=== PATIENT | female | born 1980 | race Hispanic/Latino ===

== ENCOUNTER 2020-04-28 16:23 | Emergency (ER) | payer SELFPAY ==
--- NOTE | 2020-04-28 17:10 | XRay Report ---
CHEST 2 VIEWS INDICATION / CLINICAL INFORMATION: coughing. COMPARISON: None available. FINDINGS: SUPPORT DEVICES: None. HEART / MEDIASTINUM: No significant abnormality. LUNGS / PLEURA: No significant pulmonary or pleural abnormality. No pneumothorax. ADDITIONAL FINDINGS: No significant additional findings. IMPRESSION: 1. No acute findings. Signer Name: Marcial Bourgeois MD Signed: 04/28/2020 5:05 PM Workstation Name: [id number]
[2020-04-28] MEDS ORDERED: IPRATROPIUM/ALBUTEROL SULFATE 3 ML AMPUL.NEB IH ONE (20:08)
[2020-04-28] MEDS ORDERED: dexAMETHasone 20 MG/5 ML VIAL IV ONE (20:08)
[2020-04-28] MEDS ORDERED: IBUPROFEN 600 MG TAB PO ONE (20:08)
[2020-04-28] MEDS ORDERED: ONDANSETRON 4 MG ODT TAB PO ONE (20:09)
[2020-04-28] MEDS ORDERED: FAMOTIDINE 20 MG TAB PO ONE (20:09)
[2020-04-28 20:39] LABS: Basophils # (Auto) 0.1 K/mm3 (0.0-0.1); Basophils % (Auto) 0.7 % (0.0-1.8); Eosinophils # (Auto) 0.2 K/mm3 (0.0-0.4); Eosinophils % (Auto) 2.3 % (0.0-4.3); Hematocrit 39.5 % (30.3-42.9); Hemoglobin 14.1 gm/dl (10.1-14.3); Lymphocytes # (Auto) 2.4 K/mm3 (1.2-5.4); Lymphocytes % (Auto) 26.9 % (13.4-35.0); Mean Corpuscular HGB Conc 36 % (30-34); Mean Corpuscular Volume 99 fl (79-97); Monocytes # (Auto) 0.6 K/mm3 (0.0-0.8); Monocytes % (Auto) 6.1 % (0.0-7.3); Platelet Count 264 K/mm3 (140-440); Red Blood Count 4.01 M/mm3 (3.65-5.03); Red Cell Distribution Width 13.4 % (13.2-15.2)
[2020-04-28 20:51] LABS: Alanine Aminotransferase 64 units/L (7-56); BUN/Creatinine Ratio 11; Blood Urea Nitrogen 9 mg/dL (7-17); Calcium 9.2 mg/dL (8.4-10.2); Hemolysis Index 5
--- NOTE | 2020-04-28 23:10 | Emergency Department Report ---
- General Chief Complaint: Upper Respiratory Infection Stated Complaint: COUGH,WEAKNESS,DIZZY,VOMITTING Source: patient Mode of arrival: Ambulatory Limitations: No Limitations - History of Present Illness Initial Comments: Patient is a 40-year-old white female with past medical history of heavy tobacco abuse who presents to the ED with complaint of acute onset persistent nasal and sinus congestion, persistent dry cough with wheezing, shortness of breath, frontal sinus pressure, sore throat, epigastric pain and nausea and vomiting for the last 1 week, worse in the last 2 days. Patient states that she has also felt very weak and fatigued in the last 2 days. Patient denies dizziness, syncope, fever, chills, chest pain, shortness of breath, change in vision, palpitations, dysuria, urinary frequency and urgency, back pain, hemoptysis or diarrhea. MD Complaint: cough, sore throat, rhinorrhea, nasal congestion, sinus pain, other (Nausea and vomiting and epigastric pain) -: Sudden, week(s) (1 week) Severity: moderate Severity scale (0 -10): 5 Quality: sharp, aching Consistency: intermittent Improves With: nothing Worsens With: nothing Associated Symptoms: denies other symptoms, headache, rhinorrhea, nasal congestion, sore throat, cough, shortness of breath, abdominal pain, nausea, vomiting, hoarseness. denies: fever, chills, myalgias, diaphoresis, stiff neck, chest pain, diarrhea, dysuria, rash, right sweats, epistaxis, ear pain Treatments Prior to Arrival: none - Related Data Previous Rx's Medication Instructions Recorded Last Taken Type Azithromycin [Zithromax Z-HEATH] 250 mg PO DAILY #6 tablet 04/28/20 Unknown Rx Benzonatate [Tessalon Perles] 100 mg PO Q8HR #30 capsule 04/28/20 Unknown Rx Cetirizine HCl [Zyrtec 10mg tab] 10 mg PO DAILY #30 tablet 04/28/20 Unknown Rx Famotidine [Pepcid] 20 mg PO BID #60 tablet 04/28/20 Unknown Rx Prednisone [predniSONE 10 mg 10 mg PO .TAPER #21 tab.ds.pk 04/28/20 Unknown Rx (6-Day Pack, 21 Tabs)] Promethazine [Phenergan] 25 mg PO Q6HR PRN #20 tab 04/28/20 Unknown Rx Allergies Allergy/AdvReac Type Severity Reaction Status Date / Time No Known Allergies Allergy Verified 04/28/20 16:42 ED Review of Systems ROS: Stated complaint: COUGH,WEAKNESS,DIZZY,VOMITTING Other details as noted in HPI Constitutional: weakness. denies: chills, fever Eyes: denies: eye pain, eye discharge, vision change ENT: throat pain, congestion, other (Frontal sinus pressure). denies: ear pain Respiratory: cough, shortness of breath, wheezing Cardiovascular: denies: chest pain, palpitations Endocrine: no symptoms reported Gastrointestinal: abdominal pain (Epigastric pain), nausea, vomiting. denies: diarrhea Genitourinary: denies: urgency, dysuria, frequency, hematuria, discharge Musculoskeletal: denies: back pain, joint swelling, arthralgia Skin: denies: rash, lesions Neurological: headache. denies: weakness, paresthesias Psychiatric: denies: anxiety, depression Hematological/Lymphatic: denies: easy bleeding, easy bruising ED Past Medical Hx - Past Medical History Previous Medical History?: No - Surgical History Past Surgical History?: No - Social History Smoking Status: Never Smoker Substance Use Type: None - Medications Home Medications: Home Medications Medication Instructions Recorded Confirmed Last Taken Type Azithromycin [Zithromax Z-HEATH] 250 mg PO DAILY #6 tablet 04/28/20 Unknown Rx Benzonatate [Tessalon Perles] 100 mg PO Q8HR #30 capsule 04/28/20 Unknown Rx Cetirizine HCl [Zyrtec 10mg tab] 10 mg PO DAILY #30 tablet 04/28/20 Unknown Rx Famotidine [Pepcid] 20 mg PO BID #60 tablet 04/28/20 Unknown Rx Prednisone [predniSONE 10 mg 10 mg PO .TAPER #21 tab.ds.pk 04/28/20 Unknown Rx (6-Day Pack, 21 Tabs)] Promethazine [Phenergan] 25 mg PO Q6HR PRN #20 tab 04/28/20 Unknown Rx ED Physical Exam - General Limitations: No Limitations General appearance: alert, in no apparent distress - Head Head exam: Present: atraumatic, normocephalic, normal inspection - Eye Eye exam: Present: normal appearance, PERRL, EOMI Pupils: Present: normal accommodation - ENT ENT exam: Present: mucous membranes moist, TM's normal bilaterally, normal external ear exam, other (Mild erythematous oropharynx; palpable frontal sinus tenderness and grossly congested nasal passages) - Neck Neck exam: Present: normal inspection, full ROM - Respiratory Respiratory exam: Present: wheezes (Mildly diffuse coarse wheezes). Absent: respiratory distress, rales, rhonchi, chest wall tenderness, accessory muscle use, decreased breath sounds - Cardiovascular Cardiovascular Exam: Present: regular rate, normal rhythm, normal heart sounds. Absent: bradycardia, irregular rhythm, systolic murmur, diastolic murmur, rubs, gallop - GI/Abdominal GI/Abdominal exam: Present: soft, normal bowel sounds. Absent: tenderness, guarding, rebound, hyperactive bowel sounds - Extremities Exam Extremities exam: Present: normal inspection, full ROM, normal capillary refill - Back Exam Back exam: Present: normal inspection, full ROM. Absent: tenderness, CVA tenderness (R), CVA tenderness (L), muscle spasm, vertebral tenderness - Neurological Exam Neurological exam: Present: alert, oriented X3, CN II-XII intact, normal gait, reflexes normal - Psychiatric Psychiatric exam: Present: normal affect, normal mood - Skin Skin exam: Present: warm, dry, intact, normal color. Absent: rash ED Course Vital Signs 04/28/20 16:44 Temperature 98.0 F Pulse Rate 79 Respiratory 20 Rate Blood Pressure 143/88 O2 Sat by Pulse 97 Oximetry ED Medical Decision Making - Lab Data Result diagrams: 04/28/20 20:12 04/28/20 20:12 - Radiology Data Radiology results: report reviewed, image reviewed Findings [facility] [address] [place] [address] XRay Report Signed Patient: CARMELO AGGARWAL MR#: [id number] : 1980 Acct:[id number] Age/Sex: 40 / F ADM Date: 04/28/20 Loc: ED Attending Dr: Ordering Physician: SHAHIDA BLAKELY MD Date of Service: 04/28/20 Procedure(s): XR chest routine 2V Accession Number(s): [id number] cc: ED MD ZORA Fluoro Time In Minutes: CHEST 2 VIEWS INDICATION / CLINICAL INFORMATION: coughing. COMPARISON: None available. FINDINGS: SUPPORT DEVICES: None. HEART / MEDIASTINUM: No significant abnormality. LUNGS / PLEURA: No significant pulmonary or pleural abnormality. No pneumothorax. ADDITIONAL FINDINGS: No significant additional findings. IMPRESSION: 1. No acute findings. Signer Name: Marcial Bourgeois MD Signed: 04/28/2020 5:05 PM Workstation Name: [id number] Transcribed By: SHANTAL Dictated By: Marcial Bourgeois MD Electronically Authenticated By: Marcial Bourgeois MD Signed Date/Time: 04/28/201704 DD/ 04 TD/TT: - Medical Decision Making This is a 40-year-old white female with past medical history of heavy tobacco abuse who presents to the ED with complaint of acute onset persistent nasal and sinus congestion, persistent dry cough with wheezing, shortness of breath, frontal sinus pressure, sore throat, epigastric pain and nausea and vomiting for the last 1 week, worse in the last 2 days. Patient states that she has also felt very weak and fatigued in the last 2 days. In the ED, patient is alert and oriented x3 and is not in distress. Patient was treated for pain in the ED and also given steroids and DuoNeb treatment in the ED. Chest x-ray shows no acute cardiopulmonary abnormalities or pneumonitis. Lab test results were reviewed and showed AST of 50 and ALT of 64. The rest of the lab test results are nonactionable. On reevaluation, patient felt better, will discharge home on medications and advised to follow-up with her primary care physician in 5 to 7 days for reevaluation or return to the ED immediately if symptoms get worse. - Differential Diagnosis sinusitis; bronchitis; pneumonia; URI; Dehydration Critical care attestation.: If time is entered above; I have spent that time in minutes in the direct care of this critically ill patient, excluding procedure time. ED Disposition Clinical Impression: Nausea and vomiting in adult Acute bronchitis Qualifiers: Bronchitis organism: other organism Qualified Code(s): J20.8 - Acute bronchitis due to other specified organisms Acute frontal sinusitis Qualifiers: Recurrence: non-recurrent Qualified Code(s): J01.10 - Acute frontal sinusitis, unspecified Disposition: -01 TO HOME OR SELFCARE Is pt being admited?: No Does the pt Need Aspirin: No Condition: Stable Instructions: Upper Respiratory Infection (ED), Acute Bronchitis (ED), Acute Bacterial Rhinosinusitis (ED) Additional Instructions: All lab test results are unremarkable with no acute findings. Chest x-ray shows no acute cardiopulmonary abnormalities or pneumonitis. Therefore take medications with food, drink plenty of fluids and follow-up with your primary care physician in 7 to 10 days for reevaluation. Return to the ED immediately if symptoms get worse. Prescriptions: Famotidine [Pepcid] 20 mg PO BID #60 tablet Promethazine [Phenergan] 25 mg PO Q6HR PRN #20 tab PRN Reason: Nausea Prednisone [predniSONE 10 mg (6-Day Pack, 21 Tabs)] 10 mg PO .TAPER #21 tab.ds.pk Benzonatate [Tessalon Perles] 100 mg PO Q8HR #30 capsule Azithromycin [Zithromax Z-HEATH] 250 mg PO DAILY #6 tablet Cetirizine HCl [Zyrtec 10mg tab] 10 mg PO DAILY #30 tablet Referrals: [facility] [Provider Group] - 3-5 Days Time of Disposition: 23:14 Print Language: SWEDISH
[2020-04-28 23:15] VITALS: BP 143/88
== END 2020-04-28 23:40 | disposition home or self-care (01) ==
LOC: ED 16:23
DX: J20.8 Acute bronchitis due to other specified organisms (principal); J01.10 Acute frontal sinusitis, unspecified
CPT/HCPCS: 36415; 71046; 80053; 84484; 84703; 85025; 96374; 99284; J1100; Q0162

== ENCOUNTER 2021-03-01 19:55 | Emergency (ER) | payer SELFPAY ==
[2021-03-01 22:31] LABS: HCG Qualitative,Urine Negative (Negative)
[2021-03-01 22:34] LABS: Amorphous Crystals,Urine 1+; Bilirubin,Urine NEG (Negative); Blood,Urine MOD (Negative); Color,Urine Yellow (Yellow); Mucus,Urine FEW /HPF
[2021-03-01] MEDS ORDERED: AZITHROMYCIN 250 MG TAB PO ONE (22:37)
[2021-03-01] MEDS ORDERED: LIDOCAINE-MPF (1%) 10 MG/1 ML VIAL 5 ML INFILTRATI ONE (22:37)
[2021-03-01] MEDS ORDERED: FLUCONAZOLE 200 MG TAB PO ONE (23:40)
--- NOTE | 2021-03-01 23:46 | Emergency Department Report ---
ED Female HPI - General Chief complaint: Urogenital-Female Stated complaint: VAGINAL SORES/HIV EXPOSE/WEAKNESS Time Seen by Provider: 03/01/21 22:35 Source: patient Mode of arrival: Ambulatory Limitations: No Limitations - History of Present Illness Initial comments: Patient 40-year-old female who presents for vaginal discharge and lesions x3 days. Patient denies fevers chills or nausea vomiting. Vaginal discharge is described as foul smelling green-yellow purulent with multiple lesions. Patient states partner is HIV positive. Symptoms are exacerbated by voiding and palpation symptoms are relieved by nothing tried. MD Complaint: vaginal discharge - Related Data Previous Rx's Medication Instructions Recorded Last Taken Type Azithromycin [Zithromax Z-HEATH] 250 mg PO DAILY #6 tablet 04/28/20 Unknown Rx Benzonatate [Tessalon Perles] 100 mg PO Q8HR #30 capsule 04/28/20 Unknown Rx Cetirizine HCl [Zyrtec 10mg tab] 10 mg PO DAILY #30 tablet 04/28/20 Unknown Rx Famotidine [Pepcid] 20 mg PO BID #60 tablet 04/28/20 Unknown Rx Prednisone [predniSONE 10 mg 10 mg PO .TAPER #21 tab.ds.pk 04/28/20 Unknown Rx (6-Day Pack, 21 Tabs)] Promethazine [Phenergan] 25 mg PO Q6HR PRN #20 tab 04/28/20 Unknown Rx Valacyclovir HCl [Valtrex] 1,000 mg PO BID 7 Days #14 tablet 03/01/21 Unknown Rx metroNIDAZOLE [Flagyl] 500 mg PO BID 7 Days #14 tab 03/01/21 Unknown Rx Allergies Allergy/AdvReac Type Severity Reaction Status Date / Time No Known Allergies Allergy Verified 04/28/20 16:42 ED Review of Systems ROS: Stated complaint: VAGINAL SORES/HIV EXPOSE/WEAKNESS Other details as noted in HPI Constitutional: denies: chills, fever Eyes: denies: eye pain, eye discharge, vision change ENT: denies: ear pain, throat pain Respiratory: denies: cough, shortness of breath, wheezing Cardiovascular: denies: chest pain, palpitations Endocrine: no symptoms reported Gastrointestinal: abdominal pain. denies: nausea, vomiting, diarrhea, constipation Genitourinary: urgency, dysuria, frequency, discharge, dyspareunia. denies: hematuria Musculoskeletal: denies: back pain, joint swelling, arthralgia Skin: as per HPI Neurological: denies: headache, weakness, paresthesias Psychiatric: denies: anxiety, depression Hematological/Lymphatic: denies: easy bleeding, easy bruising ED Past Medical Hx - Past Medical History Previous Medical History?: No - Surgical History Past Surgical History?: No - Social History Smoking Status: Never Smoker Substance Use Type: None - Medications Home Medications: Home Medications Medication Instructions Recorded Confirmed Last Taken Type Azithromycin [Zithromax Z-HEATH] 250 mg PO DAILY #6 tablet 04/28/20 Unknown Rx Benzonatate [Tessalon Perles] 100 mg PO Q8HR #30 capsule 04/28/20 Unknown Rx Cetirizine HCl [Zyrtec 10mg tab] 10 mg PO DAILY #30 tablet 04/28/20 Unknown Rx Famotidine [Pepcid] 20 mg PO BID #60 tablet 04/28/20 Unknown Rx Prednisone [predniSONE 10 mg 10 mg PO .TAPER #21 tab.ds.pk 04/28/20 Unknown Rx (6-Day Pack, 21 Tabs)] Promethazine [Phenergan] 25 mg PO Q6HR PRN #20 tab 04/28/20 Unknown Rx Valacyclovir HCl [Valtrex] 1,000 mg PO BID 7 Days #14 tablet 03/01/21 Unknown Rx metroNIDAZOLE [Flagyl] 500 mg PO BID 7 Days #14 tab 03/01/21 Unknown Rx ED Physical Exam - General Limitations: No Limitations General appearance: alert, in no apparent distress - Head Head exam: Present: atraumatic, normocephalic - Eye Eye exam: Present: normal appearance, EOMI Pupils: Present: normal accommodation - ENT ENT exam: Present: mucous membranes moist - Neck Neck exam: Present: normal inspection, full ROM. Absent: tenderness - Respiratory Respiratory exam: Present: normal lung sounds bilaterally. Absent: respiratory distress, wheezes - Cardiovascular Cardiovascular Exam: Present: regular rate, normal rhythm, normal heart sounds. Absent: systolic murmur, diastolic murmur, rubs, gallop - GI/Abdominal GI/Abdominal exam: Present: soft, normal bowel sounds. Absent: distended, tenderness, guarding, rebound, rigid, bruit, hernia - Rectal Rectal exam: Present: deferred - External exam: Present: erythema, lesions. Absent: ecchymosis, bleeding Speculum exam: Present: erythema, vaginal discharge (yellow green ), cervical discharge. Absent: vaginal bleeding, foreign body, tissue, laceration Bi-manual exam: Present: cervical motion tendernes - Extremities Exam Extremities exam: Present: normal inspection, full ROM. Absent: tenderness - Back Exam Back exam: Present: normal inspection, full ROM. Absent: tenderness, CVA tenderness (R), CVA tenderness (L) - Neurological Exam Neurological exam: Present: alert, oriented X3, CN II-XII intact, normal gait - Psychiatric Psychiatric exam: Present: normal affect, normal mood - Skin Skin exam: Present: warm, dry, intact, normal color. Absent: rash ED Course Vital Signs 03/01/21 21:29 Temperature 98.3 F Pulse Rate 82 Respiratory 16 Rate Blood Pressure 112/79 O2 Sat by Pulse 98 Oximetry ED Medical Decision Making - Lab Data Labs 03/01/21 22:10 Urine Color Yellow Urine Turbidity Turbid Urine pH 5.0 Ur Specific Goldsmith 1.019 Urine Protein 30 mg/dl Urine Glucose (UA) Neg Urine Ketones Neg Urine Blood Mod Urine Nitrite Neg Ur Reducing Substances Not Reportable Urine Bilirubin Neg Urine Ictotest Not Reportable Urine Urobilinogen 2.0 Ur Leukocyte Esterase Lg Urine WBC (Auto) 82.0 H Urine RBC (Auto) 5.0 U Epithel Cells (Auto) 3.0 Amorphous Crystals 1+ Urine Mucus Few Urine HCG, Qual Negative - Medical Decision Making UA noted for WBCs leukocytes bacteria, vaginal exam consistent with STI including genital herpes breakout, there is mild CMT patient treated for PID, HSV, gonorrhea chorea chlamydia and trichomoniasis. Patient will follow-up with health department in 2 to 3 days for HIV, syphilis and HSV screening. Patient verbalized agreement and understanding of discharge plan. Patient DC'd home in stable condition at this time. Critical care attestation.: If time is entered above; I have spent that time in minutes in the direct care of this critically ill patient, excluding procedure time. 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 Do not drink alcohol with Flagyl, follow-up with your primary care doctor in 2 to 3 days, follow-up with health department for HIV, syphilis, HSV screening. Return to emergency should symptoms worsen. Prescriptions: metroNIDAZOLE [Flagyl] 500 mg PO BID 7 Days #14 tab Valacyclovir HCl [Valtrex] 1,000 mg PO BID 7 Days #14 tablet Referrals: [facility] [Outside] - 3-5 Days [facility] [Provider Group] - 3-5 Days Forms: Work/School Release Form(ED) Time of Disposition: 23:49
[2021-03-02 00:33] VITALS: BP 116/52
[2021-03-02] MEDS ORDERED: FLUCONAZOLE 200 MG TAB PO ONE (22:39)
== END 2021-03-02 00:34 | disposition home or self-care (01) ==
LOC: ED 19:55
DX: A60.00 Herpesviral infection of urogenital system, unspecified (principal); A64 Unspecified sexually transmitted disease; Z79.899 Other long term (current) drug therapy
CPT/HCPCS: 81001; 81025; 87086; 96372; 99284; J0696